=== PATIENT | male | born 2000 | race Two or more races ===

== ENCOUNTER 2023-03-18 11:20 | Emergency (ER) | payer OTHER ==
[2023-03-18 11:27] VITALS: BP 105/76; PULSE 76; RESP 18; TEMP 97.8; BMI 24.6
[2023-03-18] MEDS ORDERED: IBUPROFEN 600 MG TABLET (FP) PO ONE ×2 (12:23→12:49)
== END 2023-03-18 14:28 | disposition home or self-care (01) ==
LOC: JER 11:20
DX: M54.2 Cervicalgia (principal); M25.562 Pain in left knee; S13.4XXA Sprain of ligaments of cervical spine, initial encounter; V49.40XA Driver injured in collision with unspecified motor vehicles in traffic accident, initial encounter; Y93.I9 Activity, other involving external motion
CPT/HCPCS: 73562-TC-LT-FY; 99283-25